=== PATIENT | female | born 2000 | race Caucasian/White ===

== ENCOUNTER 2024-06-04 01:58 | Emergency (ER) | payer MEDICAID, SELFPAY ==
[2024-06-04 01:58] VITALS: BMI 43.7
[2024-06-04 02:22] VITALS: BP 143/88; PULSE 90; RESP 17; TEMP 36.4; O2SAT 100
--- NOTE | 2024-06-04 02:33 | PD.EDURI ---
Upper Respiratory Inf. RME/HPI General Chief Complaint: Flu Like Symptoms Stated Complaint: COUGH, RUNNY NOSE Time Seen by Provider: 06/04/24 02:01 Source: patient Arrival date/time: 06/04/24 01:58 23-year-old female presents emergency department complaining of cough and runny nose that started yesterday. Patient denies any other associated symptoms. Mode of arrival: ambulatory Limitations: no limitations Related Data Home Medications ?Medication ?Instructions ?Recorded ?Confirmed albuterol sulfate 90 mcg/actuation 2 puff inhalation Q6H PRN 08/20/19 aerosol inhaler prazosin 1 mg capsule 1 mg PO QHS 08/20/19 sertraline PO 08/20/19 topiramate 100 mg tablet (Topamax) 100 mg PO BID 08/20/19 Previous Rx's ?Medication ?Instructions ?Recorded acetaminophen 650 mg 650 mg PO Q8H PRN fever or pain 08/20/19 tablet,extended release #30 tabs benzonatate 100 mg capsule See Rx Instructions .Route 08/20/19 (Makenzie Calvin) .COMPLEX cough #30 caps cetirizine 5 mg-pseudoephedrine ER 1 tab PO Q12H #20 tabs 08/20/19 120 mg tablet,extended release,12hr (Zyrtec-D) ibuprofen 600 mg tablet 600 mg PO Q8H PRN fever or pain 08/20/19 #30 tabs ipratropium bromide 21 mcg (0.03 See Rx Instructions .Route 08/20/19 %) nasal spray .COMPLEX #30 mL prochlorperazine 25 mg rectal 25 mg [place] BID PRN nausea and 12/06/21 suppository (Compro) vomiting #12 ea azithromycin 500 mg tablet See Rx Instructions PO .COMPLEX #6 08/13/23 tabs ondansetron 4 mg disintegrating 4 mg PO Q8H PRN nausea and 12/06/23 tablet vomiting #14 tabs prednisone 50 mg tablet 50 mg PO QDAY #7 tabs 04/18/24 acetaminophen 500 mg capsule 500 mg PO Q6H PRN pain #30 caps 06/04/24 benzonatate 100 mg capsule 100 mg PO BID #20 caps 06/04/24 Allergies Allergy/AdvReac Type Severity Reaction Status Date / Time No Known Allergies Allergy Verified 04/18/24 16:34 Review of Systems Review of Systems Systems Reviewed: All systems reviewed, normal except as documented Constitutional Constitutional: Reports system reviewed and no additional complaints, except as documented, Denies body ache(s), Denies chills and Denies fever(s) Eyes Eyes: Reports system reviewed and no additional complaints, except as documented and Denies change in vision ENT Ears, Nose, Mouth, and Throat: Reports system reviewed and no additional complaints, except as documented, Denies disequilibrium, Denies dizziness, Reports nasal congestion, Denies sore throat and Denies vertigo Cardiovascular Cardiovascular: Reports system reviewed and no additional complaints, except as documented, Denies chest pain and Denies dyspnea Respiratory Respiratory: Reports system reviewed and no additional complaints, except as documented, Denies chest congestion, Reports cough and Denies dyspnea Gastrointestinal Gastrointestinal: Reports system reviewed and no additional complaints, except as documented, Denies abdominal pain, Denies nausea and Denies vomiting Musculoskeletal Musculoskeletal: Reports system reviewed and no additional complaints, except as documented, Denies abnormal gait and Denies arthralgias Integumentary/Breasts Skin/Breast: Reports system reviewed and no additional complaints, except as documented, Denies erythema, Denies rash and Denies wounds Neurologic Neurologic: Reports system reviewed and no additional complaints, except as documented, Denies abnormal gait, Denies disequilibrium, Denies dizziness and Denies vertigo Past Medical History Past Medical History NEUROLOGIC: Negative Neurological Disorders CARDIAC: Negative Cardiac Disorders or Congestive Heart Failure RESPIRATORY: Positive Asthma; Negative Chronic Obstructive Pulmonary Disease (COPD) GENITOURINARY: Positive Genitourinary Disorders and Kidney Stones; Negative Renal Disease ENDOCRINE: Negative Diabetes Mellitus Type 1 or Diabetes Mellitus Type 2 Social History SMOKING STATUS: Never smoker SUBSTANCE USE: does not use ED Exam General Limitations: Present no limitations General appearance: Present alert and in no apparent distress Head Head exam: Present atraumatic Eye Eye exam: Present normal appearance, PERRL and EOMI ENT ENT exam: Present normal exam, normal oropharynx and mucous membranes moist Neck Neck exam: Present normal inspection, full ROM and trachea midline Chest Chest inspection: Present normal inspection and symmetric chest wall rise Respiratory Respiratory exam: Present normal lung sounds bilaterally Cardiovascular Cardiovascular exam: Present regular rate, normal rhythm and normal heart sounds Abdominal Exam Abdominal exam: Present soft and normal bowel sounds Extremities Exam Extremities exam: Present normal inspection and full ROM Back Exam Back exam: Present normal inspection and full ROM Neurological Exam Neurological exam: Present alert, oriented X3 and CN II-XII intact Psychiatric Psychiatric exam: Present normal affect and normal mood Skin Skin exam: Present warm, dry, intact and normal color Course Quality Measures none Orders Category Date Time Status Bedside Influenza A&B Antigen Test NOW Care 06/04/24 02:33 Completed Vital Signs Vital signs: Vital Signs Temperature 97.5 F 06/04/24 02:22 Pulse Rate 90 06/04/24 02:22 Respiratory Rate 17 06/04/24 02:22 Blood Pressure 143/88 H 06/04/24 02:22 Pulse Oximetry (%) 100 06/04/24 02:22 Oxygen Delivery Method Room Air 06/04/24 02:22 100% room air within normal limits Upper Respiratory Infection MDM Narrative MDM Narrative:: 23-year-old female presents emergency department complaining of cough and runny nose that started yesterday. Patient denies any other associated symptoms. Patient reports sick contact with 2 of her children having similar symptoms and one of them testing positive for influenza. No adventitious lung sounds on auscultation. Patient not appear to be in any respiratory distress. Patient speaking in full sentences. Patient likely has viral infection. Patient eloped before discharge instructions were given. Patient data External records reviewed:: [facility] previous records Clinical information provided by:: patient Social determinants that could affect healthcare access:: none Patient has the following chronic illnesses:: See chart How is presenting disease/condition affected by chronic disease/condition?: uneffected by Evaluation data The following diagnostics were reviewed and interpreted by me:: lab results Lab and/or radiology exams considered but not ordered:: Ordered Interpretation Summary: Interpreted by me Medications / Prescriptions Medications or Prescriptions considered but not ordered:: N/A Medication administrations:: N/A Consultations Consultation(s) initiated? (list below): No Diagnosis Upper Respiratory Differential Diagnosis: upper respiratory infection, otitis media, sinusitis, viral infection, bronchitis, influenza and pharyngitis Most likely diagnosis given after review of the tests above:: Viral infection Admission Indicated Admission indicated?: not indicated Admission Request Was there a request for admission?: No Disposition Plan Disposition Plan: other (specify) (Eloped) Discharge Plan Plan Patient Disposition: HOME (Self Care) Disposition Comment: Stable Prescriptions/Referrals Prescriptions/Med Rec: New benzonatate 100 mg capsule 100 mg PO BID Qty: 20 0RF acetaminophen 500 mg capsule 500 mg PO Q6H PRN (Reason: pain) Qty: 30 0RF No Action sertraline PO albuterol sulfate 90 mcg/actuation HFA aerosol inhaler 2 puff IH Q6H PRN topiramate [Topamax] 100 mg tablet 100 mg PO BID prazosin 1 mg capsule 1 mg PO QHS acetaminophen 650 mg tablet extended release 650 mg PO Q8H PRN (Reason: fever or pain) Qty: 30 0RF Rx Instructions: swallow whole; do not crush, chew, break, dissolve, cut, or open ibuprofen 600 mg tablet 600 mg PO Q8H PRN (Reason: fever or pain) Qty: 30 0RF Rx Instructions: prn pain / fever ipratropium bromide 0.03 % spray,non-aerosol See Rx Instructions .Route .COMPLEX Qty: 30 0RF Rx Instructions: 2 sprays to each nostril q6-8 hours prn congestion; wait 30 seconds between sprays benzonatate [Tessalon Perles] 100 mg capsule See Rx Instructions .Route .COMPLEX Qty: 30 0RF Rx Instructions: 1-2 cap(s) PO Q8 hours prn cough cetirizine-pseudoephedrine [Zyrtec-D] 5-120 mg tablet extended release 12 hr 1 tab PO Q12H Qty: 20 0RF prochlorperazine [Compro] 25 mg suppository 25 mg PA BID PRN (Reason: nausea and vomiting) Qty: 12 0RF ondansetron 4 mg tablet,disintegrating 4 mg PO Q8H PRN (Reason: nausea and vomiting) Qty: 14 0RF azithromycin 500 mg tablet See Rx Instructions .ROUTE .COMPLEX Qty: 6 0RF Rx Instructions: take 500 mg today (day 1), then 250 mg for 4 days (days 2-5) prednisone 50 mg tablet 50 mg PO QDAY Qty: 7 0RF Problem List Clinical Impression: Viral infection Patient/Caregiver Discharge Instructions Education Materials: ED Viral Syndrome (Adult) Additional Instructions: Drink plenty of water and stay hydrated. Get plenty of rest. Take Tylenol or ibuprofen as needed for fever or pain. Follow-up with primary care provider in 2 to 3 days. Return to emergency department for any worsening symptoms or as needed. Print Language: Cymraes Stand Alone Forms: [employer] Info., Patient Portal Info Letter PA/BIOSOLIDS MANAGEMENT TECHNICIAN Supervising Physician PA/BIOSOLIDS MANAGEMENT TECHNICIAN Supervising Physician: Dr. Hackett
== END 2024-06-04 03:09 | disposition home or self-care (01) ==
LOC: SERX 04:17
PROVIDERS: Emergency Provider Emergency Medicine
DX: B34.9 Viral infection, unspecified (principal)
CPT/HCPCS: 87400; 99283

== ENCOUNTER 2024-08-13 11:15 | Emergency (ER) | payer BC, SELFPAY ==
[2024-08-13 11:27] VITALS: BP 124/79; PULSE 93; RESP 20; TEMP 36.8; O2SAT 97; BMI 41.4
--- NOTE | 2024-08-13 11:48 | PD.EDVAGBL ---
ED OB Contraction Preg RMI/HPI General Chief complaint: Vaginal Bleeding Stated complaint: PROLONGED VAGINAL BLEEDING; PT HAS PCOS Time Seen by Provider: 08/13/24 11:21 Source: patient Arrival date/time: 08/13/24 11:15 23-year-old female with a history of PCOS presents to the emergency room with a chief complaint of vaginal bleeding and pelvic cramping x 2 days Mode of arrival: ambulatory Limitations: no limitations Related Data Home Medications ?Medication ?Instructions ?Recorded ?Confirmed albuterol sulfate 90 mcg/actuation 2 puff inhalation Q6H PRN 08/20/19 aerosol inhaler prazosin 1 mg capsule 1 mg PO QHS 08/20/19 sertraline PO 08/20/19 topiramate 100 mg tablet (Topamax) 100 mg PO BID 08/20/19 Previous Rx's ?Medication ?Instructions ?Recorded acetaminophen 650 mg 650 mg PO Q8H PRN fever or pain 08/20/19 tablet,extended release #30 tabs benzonatate 100 mg capsule See Rx Instructions .Route 08/20/19 (Makenzie Calvin) .COMPLEX cough #30 caps cetirizine 5 mg-pseudoephedrine ER 1 tab PO Q12H #20 tabs 08/20/19 120 mg tablet,extended release,12hr (Zyrtec-D) ibuprofen 600 mg tablet 600 mg PO Q8H PRN fever or pain 08/20/19 #30 tabs ipratropium bromide 21 mcg (0.03 See Rx Instructions .Route 08/20/19 %) nasal spray .COMPLEX #30 mL prochlorperazine 25 mg rectal 25 mg [place] BID PRN nausea and 12/06/21 suppository (Compro) vomiting #12 ea azithromycin 500 mg tablet See Rx Instructions PO .COMPLEX #6 08/13/23 tabs ondansetron 4 mg disintegrating 4 mg PO Q8H PRN nausea and 12/06/23 tablet vomiting #14 tabs prednisone 50 mg tablet 50 mg PO QDAY #7 tabs 04/18/24 acetaminophen 500 mg capsule 500 mg PO Q6H PRN pain #30 caps 06/04/24 benzonatate 100 mg capsule 100 mg PO BID #20 caps 06/04/24 Allergies Allergy/AdvReac Type Severity Reaction Status Date / Time tramadol Allergy Verified 08/13/24 11:20 Review of Systems Review of Systems Systems Reviewed: All systems reviewed, normal except as documented Constitutional Constitutional: Reports system reviewed and no additional complaints, except as documented, Denies fatigue, Denies fever(s), Denies headache(s) and Denies weakness Eyes Eyes: Reports system reviewed and no additional complaints, except as documented, Denies blurry vision and Denies change in vision ENT Ears, Nose, Mouth, and Throat: Reports system reviewed and no additional complaints, except as documented, Denies otalgia, Denies headache(s), Denies nasal congestion, Denies throat swelling and Denies vertigo Cardiovascular Cardiovascular: Reports system reviewed and no additional complaints, except as documented, Denies chest pain, Denies dyspnea and Denies dyspnea on exertion Respiratory Respiratory: Reports system reviewed and no additional complaints, except as documented, Denies chest congestion, Denies cough, Denies dyspnea, Denies dyspnea on exertion and Denies wheezing Gastrointestinal Gastrointestinal: Reports system reviewed and no additional complaints, except as documented, Denies abdominal pain, Reports cramping, Reports nausea and Denies vomiting Genitourinary Genitourinary: Reports system reviewed and no additional complaints, except as documented, Reports abnormal vaginal bleeding and Reports pelvic pain Musculoskeletal Musculoskeletal: Reports system reviewed and no additional complaints, except as documented and Denies back pain Integumentary/Breasts Skin/Breast: Reports system reviewed and no additional complaints, except as documented and Denies wounds Neurologic Neurologic: Reports system reviewed and no additional complaints, except as documented, Denies confusion, Denies headache(s), Denies lack of coordination, Denies vertigo and Denies weakness Psychiatric Psychiatric: Reports system reviewed and no additional complaints, except as documented, Denies anxiety, Denies confusion, Denies depression, Denies paranoia, Denies suicidal ideation and Denies tactile hallucinations Endocrine Endocrine: Reports system reviewed and no additional complaints, except as documented and Denies fatigue Hematologic/Lymphatic Hematologic/Lymphatic: Reports system reviewed and no additional complaints, except as documented and Denies lymphadenopathy Allergic/Immunologic Allergic/Immunologic: Reports system reviewed and no additional complaints, except as documented, Denies throat swelling, Denies urticaria and Denies wheezing ED Exam General Limitations: Present no limitations General appearance: Present alert and in no apparent distress Head Head exam: Present atraumatic Eye Eye exam: Present normal appearance, PERRL and EOMI ENT ENT exam: Present normal exam, normal oropharynx and mucous membranes moist Neck Neck exam: Present normal inspection, full ROM and trachea midline Chest Chest inspection: Present normal inspection and symmetric chest wall rise Respiratory Respiratory exam: Present normal lung sounds bilaterally Cardiovascular Cardiovascular exam: Present regular rate, normal rhythm and normal heart sounds Abdominal Exam Abdominal exam: Present soft and normal bowel sounds Extremities Exam Extremities exam: Present normal inspection and full ROM Back Exam Back exam: Present normal inspection and full ROM Neurological Exam Neurological exam: Present alert, oriented X3 and CN II-XII intact Psychiatric Psychiatric exam: Present normal affect and normal mood Skin Skin exam: Present warm, dry, intact and normal color Course Quality Measures none Orders Category Date Time Status Bedside COVID-19 Antigen Test NOW Care 08/13/24 11:45 Active Bedside Influenza A&B Antigen Test NOW Care 08/13/24 11:45 Completed US transvaginal Stat Exams 08/13/24 12:52 Completed CBC Stat Lab 08/13/24 12:05 Completed CMP [Comprehensive Metabolic Panel] Stat Lab 08/13/24 12:05 Completed Strep A Rapid Stat Lab 08/13/24 11:51 Completed UA, C/S IF [Urinalysis, C/S if Indicated] Stat Lab 08/13/24 12:15 Completed Vital Signs Vital signs: Vital Signs Temperature 98.3 F 08/13/24 11:27 Pulse Rate 93 08/13/24 11:27 Respiratory Rate 20 08/13/24 11:27 Blood Pressure 124/79 08/13/24 11:27 Pulse Oximetry (%) 97 08/13/24 11:27 Oxygen Delivery Method Room Air 08/13/24 11:27 O2 saturation 97% within normal limits Vaginal Bleeding MDM Narrative MDM Narrative: 23-year-old female with a history of PCOS presents to the emergency room with a chief complaint of vaginal bleeding and pelvic cramping x 2 days Patient is hemodynamically stable and in no apparent distress Physical examination shows pelvic cramping. Patient states her vaginal bleeding is less than a period but has been constantly going on. Patient states she saw her primary care provider which put her on metformin but has not helped her symptoms. Pelvic ultrasound was completed and was negative for any acute findings. Hemoglobin and hematocrit are within normal limits. Urinalysis is within normal limits. Patient also tested positive for influenza B. Patient was educated to follow-up with primary care provider as well as her SOFTWARE RELIABILITY ENGINEER for further management of her PCOS. Patient was discharged and educated to return to the emergency room for any evidence of worsening signs or symptoms Patient data External records reviewed:: [facility] previous records Clinical information provided by:: patient Social determinants that could affect healthcare access:: none Patient has the following chronic illnesses:: PCOS How is presenting disease/condition affected by chronic disease/condition?: caused by Evaluation data The following diagnostics were reviewed and interpreted by me:: lab results and radiology exam(s) Lab and/or radiology exams considered but not ordered:: Labs and radiology exams considered and ordered Interpretation Summary: Pelvic ultrasound-FINDINGS: Uterus 6.7 cm endometrial stripe 0.7 cm No uterine mass or intrauterine gestation Right ovary 3.6 cm arterial flow Left ovary 3.3 cm arterial flow IMPRESSION: Negative examination. Medications / Prescriptions Medications or Prescriptions considered but not ordered:: Medication given Medication administrations:: Medication not given Consultations Consultation(s) initiated? (list below): No Diagnosis Vaginal Bleeding Differential Diagnosis: dysfunctional uterine bleeding, vaginal bleeding and other (Influenza B) Most likely diagnosis given after review of the tests above:: Dysfunctional uterine bleeding Admission Indicated Admission indicated?: not indicated Admission Request Was there a request for admission?: No Disposition Plan Disposition Plan: Discharge Discharge Attestation Discharge Attestation: The patient and all family members were given an opportunity to ask questions and understood the discharge instructions. Discharge instructions specifically effects, indications for sooner follow up or return to the emergency department, and the expected course of current diagnosis. Patient condition: Stable Discharge Plan Plan Patient Disposition: HOME (Self Care) Disposition Comment: Stable Prescriptions/Referrals Prescriptions/Med Rec: No Action sertraline PO albuterol sulfate 90 mcg/actuation HFA aerosol inhaler 2 puff IH Q6H PRN topiramate [Topamax] 100 mg tablet 100 mg PO BID prazosin 1 mg capsule 1 mg PO QHS acetaminophen 650 mg tablet extended release 650 mg PO Q8H PRN (Reason: fever or pain) Qty: 30 0RF Rx Instructions: swallow whole; do not crush, chew, break, dissolve, cut, or open ibuprofen 600 mg tablet 600 mg PO Q8H PRN (Reason: fever or pain) Qty: 30 0RF Rx Instructions: prn pain / fever ipratropium bromide 0.03 % spray,non-aerosol See Rx Instructions .Route .COMPLEX Qty: 30 0RF Rx Instructions: 2 sprays to each nostril q6-8 hours prn congestion; wait 30 seconds between sprays benzonatate [Tessalon Perles] 100 mg capsule See Rx Instructions .Route .COMPLEX Qty: 30 0RF Rx Instructions: 1-2 cap(s) PO Q8 hours prn cough cetirizine-pseudoephedrine [Zyrtec-D] 5-120 mg tablet extended release 12 hr 1 tab PO Q12H Qty: 20 0RF prochlorperazine [Compro] 25 mg suppository 25 mg [place] BID PRN (Reason: nausea and vomiting) Qty: 12 0RF ondansetron 4 mg tablet,disintegrating 4 mg PO Q8H PRN (Reason: nausea and vomiting) Qty: 14 0RF benzonatate 100 mg capsule 100 mg PO BID Qty: 20 0RF acetaminophen 500 mg capsule 500 mg PO Q6H PRN (Reason: pain) Qty: 30 0RF azithromycin 500 mg tablet See Rx Instructions .ROUTE .COMPLEX Qty: 6 0RF Rx Instructions: take 500 mg today (day 1), then 250 mg for 4 days (days 2-5) prednisone 50 mg tablet 50 mg PO QDAY Qty: 7 0RF Referrals: Berenice Giang PA-C [Primary Care Provider] - In 1 week Problem List Clinical Impression: Influenza B, Abnormal vaginal bleeding Patient/Caregiver Discharge Instructions Education Materials: ED Dysfunctional Uterine Bleeding, ED Influenza (Adult) Additional Instructions: Please follow-up with your SOFTWARE RELIABILITY ENGINEER in the next 24 to 48 hours. At this time your pelvic ultrasound was negative for any acute findings. Your blood levels are within normal limits. Please see an SOFTWARE RELIABILITY ENGINEER to help manage her symptoms of your PCOS. You also tested positive for influenza B this can be contributing to your nasal congestion sore throat and bodyaches. The treatment for this is symptom management. Please continue to take Tylenol and ibuprofen for fever management. Please increase your oral fluid intake. For any evidence of worsening signs or symptoms please return to the emergency room immediately Print Language: Estonian Stand Alone Forms: [employer] Award Info., Patient Portal Info Letter BEN/IVORY Supervising Physician BEN/IVORY Supervising Physician: Dr. Hackett
[2024-08-13 12:22] LABS: Collection Type, Urine Clean Catch
[2024-08-13 12:24] LABS: Strep A Rapid Negative (Negative)
[2024-08-13 12:30] LABS: Basophils % (Auto) 0 % (0-2.5); Eosinophils # (Auto) 0.1 Thou/mm3 (0.0-0.5); Eosinophils % (Auto) 1 % (0-10); Hematocrit 37.2 % (36.0-46.0); Hemoglobin 12.2 g/dL (12.0-16.0); Immature Granulocytes % (Auto) 0 % (0-0); Immature Granulocytes Auto 0.03 Thou/mm3 (0.00-0.00); Lymphocytes # (Auto) 2.5 Thou/mm3 (1.0-4.8); Lymphocytes % (Auto) 22 % (10-50); Mean Corpuscular HGB Conc 32.8 g/dl (31.0-37.0); Mean Corpuscular Hemoglobin 27.7 pg (25.0-35.0); Mean Corpuscular Volume 85 fL (80-100); Monocytes % (Auto) 8 % (0-12); Neutrophils # (Auto) 7.7 Thou/mm3 (1.8-7.7); Neutrophils % (Auto) 68 % (37-80); Nucleated Red Blood Cell % 0 /100 WBC (0); Platelet Count 345 Thou/mm3 (140-440); RDW Standard Deviation 38.9 fL (36.4-46.3); White Blood Count 11.3 Thou/mm3 (3.6-11.0)
[2024-08-13 12:50] LABS: Alanine Aminotransferase 37 U/L (10-49); Albumin, Serum 4.6 gm/dL (3.5-5.0); Anion Gap 8 (7-16); Aspartate Amino Transferase 17 U/L (0-34); BUN/Creatinine Ratio 17 Ratio (12-20); Bilirubin,Total 0.5 mg/dL (0.3-1.2); Blood Urea Nitrogen 10 mg/dL (9-23); Calcium 9.9 mg/dL (8.3-10.6); Calcium (Corrected) 9.9 mg/dL (8.5-10.1); Carbon Dioxide 27.3 mMol/L (20.0-31.0); Chloride 106 mMol/L (98-107); Creatinine (Component) 0.6 mg/dL (0.6-1.3); Estimated Creatinine Clearance 179.6 mL/min (>60); Glucose 69 mg/dL (74-106); Osmolality,Calculated 278 (275-295); Potassium 3.6 mMol/L (3.4-5.1); Sodium 141 mMol/L (136-145); Total Protein 7.4 gm/dL (5.7-8.2); eGFR > 60 See Note
[2024-08-13 12:51] LABS: Albumin/Globulin Ratio 1.6 (1.2-2.2); Alkaline Phosphatase 64 U/L (46-116); Globulin 2.8 gm/dL (2.3-3.5)
--- NOTE | 2024-08-13 12:52 | XR_ITS ---
Examination: Transvaginal ultrasound of the pelvis, complete Technique: Transvaginal sonographic images pelvis performed using kerr scale imaging Exam date and time: August 13, 2024 1256 hours INDICATIONS: Irregular heavy vaginal bleeding beginning 4 months ago FINDINGS: Uterus 6.7 cm endometrial stripe 0.7 cm No uterine mass or intrauterine gestation Right ovary 3.6 cm arterial flow Left ovary 3.3 cm arterial flow IMPRESSION: Negative examination.
[2024-08-13 12:57] LABS: Amorphous Crystals,Urine Present (Absent); Bilirubin,Urine Negative (Negative); Blood,Urine 1+ (Negative); Clarity,Urine Turbid (Clear/Hazy); Color,Urine Lt-Yellow (Lt Yel-Yel); Culture Indicated,Urine Not Indicated; Glucose, Urine Negative (Negative); Ketones,Urine Negative (Negative); Leukocyte Esterase,Urine Negative (Negative); Nitrite,Urine Negative (Negative); PH,Urine 7.5 (5.0-7.0); Protein,Urine Negative (Neg - Trace); RBC,Urine 5 /hpf (0-3); Squamous Epithelial Cell,Urine < 1 /hpf (0-5); Urobilinogen,Urine Negative mg/dL (0.0-1.0); WBC,Urine 1 /hpf (0-5)
== END 2024-08-13 13:59 | disposition home or self-care (01) ==
PROVIDERS: Nurse Practitioner Family; Emergency Provider Emergency Medicine; PCP Physician Assistant Medical
DX: N93.9 Abnormal uterine and vaginal bleeding, unspecified (principal); J10.1 Influenza due to other identified influenza virus with other respiratory manifestations
CPT/HCPCS: 36415; 76830; 80053; 81001; 85025; 87400; 87651; 87811; 99284

== ENCOUNTER 2024-09-18 06:07 | Emergency (ER) | payer BC, SELFPAY ==
[2024-09-18 06:07] VITALS: BMI 39.9
[2024-09-18 06:23] VITALS: BP 129/57; PULSE 100; RESP 19; TEMP 36.9; O2SAT 100
--- NOTE | 2024-09-18 06:23 | XR_ITS ---
Examination: PA lateral chest 2 views Technique: Upright PA and lateral chest 2 views Exam date and time: 2024 0707 hrs. Comparison April 18, 2024 Indications: Coughing shortness of breath today Findings: Normal heart size No lobar pneumonia or pulmonary edema The osseous structures are intact Impression: No active disease
[2024-09-18] MEDS: ALBUTEROL/IPRATROPIUM (Duoneb) RT SOL 3 ML NEBU INH (06:32)
[2024-09-18 06:36] VITALS: PULSE 91; RESP 20; O2SAT 99
[2024-09-18] MEDS: dexAMETHasone 4 MG TABLET 10 MG PO (06:36)
--- NOTE | 2024-09-18 06:55 | EDNOTE_ITS ---
<Statement entered by Kathy Centeno MD - 09/18/24 17:07> As co-signing physician, I was present and available for consult prn. I concur with the plan and care as documented by the midlevel provider. ED Asthma RME/HPI General Chief Complaint: Asthma Stated Complaint: ASTHMA ATTACK Time Seen by Provider: 09/18/24 06:12 Arrival date/time: 09/18/24 06:07 23-year-old female with history of asthma presents the emergency room today for complaint of dry cough and wheezing patient reports that she been using a breathing treatment but still has wheezing and still has cough Limitations: no limitations Related Data Home Medications ?Medication ?Instructions ?Recorded ?Confirmed albuterol sulfate 90 mcg/actuation 2 puff inhalation Q 6H PRN 08/20/19 aerosol inhaler prazosin 1 mg capsule 1 mg PO QHS 08/20/19 sertraline PO 08/20/19 topiramate 100 mg tablet (Topamax) 100 mg PO BID 08/19 Previous Rx's ?Medication ?Instructions ?Recorded acetaminophen 650 mg 650 mg PO Q8H PRN fever or p ain 08/20/19 tablet,extended release #30 tabs benzonatate 100 mg capsule See Rx Instructions .Route 08/20/19 (Makenzie Calvin) .COMPLEX cough #30 caps cetirizine 5 mg-pseudoephedrine ER 1 tab PO Q12H #20 t abs 08/20/19 120 mg tablet,extended release,12hr (Zyrtec-D) ibuprofen 600 mg tablet 600 mg PO Q8H PRN fever or p ain 08/20/19 #30 tabs ipratropium bromide 21 mcg (0.03 See Rx Instructions . Route 08/20/19 %) nasal spray .COMPLEX #30 mL prochlorperazine 25 mg rectal 25 mg AR BID PRN nausea and 12/06/21 suppository (Compro) vomiting #12 ea azithromycin 500 mg tablet See Rx Instructions PO .COM PLEX #6 08/13/23 tabs ondansetron 4 mg disintegrating 4 mg PO Q8H PRN nausea and 12/06/23 tablet vomiting #14 tabs prednisone 50 mg tablet 50 mg PO QDAY #7 tabs acetaminophen 500 mg capsule 500 mg PO Q6H PRN pain #3 0 caps 06/04/24 benzonatate 100 mg capsule 100 mg PO BID #20 caps 05/13 10/03 albuterol sulfate 90 mcg/actuation 2 puff inhalation Q 6H PRN 09/18/24 aerosol inhaler (Ventolin HFA) shortness of breath or wheezing #8.5 grams benzonatate 100 mg capsule 100 mg PO TID #14 caps 03/06 prednisone 10 mg tablet 30 mg (3 x 10 mg) PO BID 3 d ays 09/18/24 #18 tabs Allergies Allergy/AdvReac Type Severity Reaction Status Date / Time tramadol Allergy Verified 08/13/24 11:20 Review of Systems Review of Systems Systems Reviewed: All systems reviewed, normal except as documented Constitutional Constitutional: Reports system reviewed and no additional complaints, except as documented, Denies fever(s) and Denies headache(s) Eyes Eyes: Reports system reviewed and no additional complaints, except as documented and Denies blurry vision ENT Ears, Nose, Mouth, and Throat: Reports system reviewed and no additional complaints, except as documented, Denies headache(s), Denies nasal congestion and Denies nasal discharge Cardiovascular Cardiovascular: Reports system reviewed and no additional complaints, except as documented, Denies chest pain and Denies dyspnea Respiratory Respiratory: Reports system reviewed and no additional complaints, except as documented, Reports chest congestion, Reports cough, Denies dyspnea and Reports wheezing Gastrointestinal Gastrointestinal: Reports system reviewed and no additional complaints, except as documented and Denies abdominal pain Integumentary/Breasts Skin/Breast: Reports system reviewed and no additional complaints, except as documented and Denies rash Neurologic Neurologic: Reports system reviewed and no additional complaints, except as documented, Reports as per HPI and Denies headache(s) Allergic/Immunologic Allergic/Immunologic: Reports wheezing Past Medical History Past Medical History NEUROLOGIC: Negative Neurological Disorders CARDIAC: Negative Cardiac Disorders or Congestive Heart Failure RESPIRATORY: Positive Asthma; Negative Chronic Obstructive Pulmonary Disease (COPD) GENITOURINARY: Positive Genitourinary Disorders and Kidney Stones; Negative Renal Disease ENDOCRINE: Negative Diabetes Mellitus Type 1 or Diabetes Mellitus Type 2 Social History SMOKING STATUS: Never smoker SUBSTANCE USE: does not use ED Exam General Limitations: Present no limitations General appearance: Present alert and in no apparent distress Head Head exam: Present atraumatic Eye Eye exam: Present normal appearance, PERRL and EOMI; Absent conjunctival injection ENT ENT exam: Present normal exam, normal oropharynx and mucous membranes moist Neck Neck exam: Present normal inspection, full ROM and trachea midline Chest Chest inspection: Present normal inspection and symmetric chest wall rise Respiratory Respiratory exam: Present wheezes (Mild wheezing); Absent respiratory distress, stridor, accessory muscle use or prolonged expiratory phase Cardiovascular Cardiovascular exam: Present regular rate, normal rhythm and normal heart sounds Abdominal Exam Abdominal exam: Present soft and normal bowel sounds Extremities Exam Extremities exam: Present normal inspection and full ROM Back Exam Back exam: Present normal inspection and full ROM Neurological Exam Neurological exam: Present alert, oriented X3 and CN II-XII intact Psychiatric Psychiatric exam: Present normal affect and normal mood Skin Skin exam: Present warm, dry, intact and normal color Course Quality Measures none Orders Category Date Time Status Bedside Influenza A&B Antigen Test NOW Care 09/18/24 06:23 Completed XR chest 2V Stat Exams 09/18/24 06:23 Ordered Albuterol/Ipratr Rt Lina [Duoneb Rt Lina] Med 09/18/24 06:23 Discontinued 3 ml INH X1 ONE dexAMETHasone TAB [Decadron Tab] Med 09/18/24 06:23 Discontinued 10 mg PO X1 ONE Vital Signs Vital signs: Vital Signs Temperature 98.5 F 09/18/24 06:23 Pulse Rate 100 09/18/24 06:23 Respiratory Rate 19 09/18/24 06:23 Blood Pressure 129/57 L 09/18/24 06:23 Pulse Oximetry (%) 100 09/18/24 06:23 Oxygen Delivery Method Room Air 09/18/24 06:23 O2 saturation 100% room air within normal limits Asthma MDM Narrative MDM Narrative:: 23-year-old female with history of asthma presents the emergency room today for complaint of dry cough and wheezing patient reports that she been using a breathing treatment but still has wheezing and still has cough Lab work and imaging obtained no acute emergent findings noted Patient can breathe treatment as well as steroids Patient discharged home in no distress to follow-up with primary care doctor in the next 24 to 48 hours and for any worsening symptoms to return to the ER immediately Patient data External records reviewed:: [facility] previous records Clinical information provided by:: patient Social determinants that could affect healthcare access:: none Patient has the following chronic illnesses:: Asthma How is presenting disease/condition affected by chronic disease/condition?: caused by Evaluation data The following diagnostics were reviewed and interpreted by me:: lab results and radiology exam(s) Lab and/or radiology exams considered but not ordered:: Labs radiology obtain Interpretation Summary: Reviewed by me Medications / Prescriptions Medications or Prescriptions considered but not ordered:: Given Medication administrations:: Medication Administration History Discontinued Medications Albuterol/Ipratropium (Albuterol/Ipratropium (Duoneb) Rt Lina 3 Ml Nebu) 3 ml INH X1 ONE Stop: 09/18/24 06:24 Last Admin: 09/18/24 06:32 Dose: 3 ml Documented By: [facility] Dexamethasone (Dexamethasone 4 Mg Tablet) 10 mg PO X1 ONE Stop: 09/18/24 06:24 Last Admin: 09/18/24 06:36 Dose: 10 mg Documented By: CB Consultations Consultation(s) initiated? (list below): No Diagnosis Differential diagnosis asthma: Acute exacerbation, Status asthmaticus and Acute asthmatic bronchitis Most likely diagnosis given after review of the tests above:: Asthma Admission Indicated Admission indicated?: not indicated Admission Request Was there a request for admission?: No Disposition Plan Disposition Plan: Discharge Discharge Attestation Discharge Attestation: The patient and all family members were given an opportunity to ask questions and understood the discharge instructions. Discharge instructions specifically effects, indications for sooner follow up or return to the emergency department, and the expected course of current diagnosis. Patient condition: Stable Discharge Plan Plan Patient Disposition: HOME (Self Care) Disposition Comment: Stable Prescriptions/Referrals Prescriptions/Med Rec: New prednisone 10 mg tablet 30 mg PO BID 3 Days Qty: 18 0RF albuterol sulfate [Ventolin HFA] 90 mcg/actuation HFA aerosol inhaler 2 puff inhalation Q6H PRN (Reason: shortness of breath or wheezing) Qty: 8.5 0RF benzonatate 100 mg capsule 100 mg PO TID Qty: 14 0RF No Action sertraline PO albuterol sulfate 90 mcg/actuation HFA aerosol inhaler 2 puff IH Q6H PRN topiramate [Topamax] 100 mg tablet 100 mg PO BID prazosin 1 mg capsule 1 mg PO QHS acetaminophen 650 mg tablet extended release 650 mg PO Q8H PRN (Reason: fever or pain) Qty: 30 0RF Rx Instructions: swallow whole; do not crush, chew, break, dissolve, cut, or open ibuprofen 600 mg tablet 600 mg PO Q8H PRN (Reason: fever or pain) Qty: 30 0RF Rx Instructions: prn pain / fever ipratropium bromide 0.03 % spray,non-aerosol See Rx Instructions .Route .COMPLEX Qty: 30 0RF Rx Instructions: 2 sprays to each nostril q6-8 hours prn congestion; wait 30 seconds between sprays benzonatate [Tessalon Perles] 100 mg capsule See Rx Instructions .Route .COMPLEX Qty: 30 0RF Rx Instructions: 1-2 cap(s) PO Q8 hours prn cough cetirizine-pseudoephedrine [Zyrtec-D] 5-120 mg tablet extended release 12 hr 1 tab PO Q12H Qty: 20 0RF prochlorperazine [Compro] 25 mg suppository 25 mg AR BID PRN (Reason: nausea and vomiting) Qty: 12 0RF ondansetron 4 mg tablet,disintegrating 4 mg PO Q8H PRN (Reason: nausea and vomiting) Qty: 14 0RF benzonatate 100 mg capsule 100 mg PO BID Qty: 20 0RF acetaminophen 500 mg capsule 500 mg PO Q6H PRN (Reason: pain) Qty: 30 0RF azithromycin 500 mg tablet See Rx Instructions .ROUTE .COMPLEX Qty: 6 0RF Rx Instructions: take 500 mg today (day 1), then 250 mg for 4 days (days 2-5) prednisone 50 mg tablet 50 mg PO QDAY Qty: 7 0RF Referrals: Temporary Provider,ED [Physician] - In 1 week Problem List Clinical Impression: Asthma exacerbation Patient/Caregiver Discharge Instructions Education Materials: Asthma Additional Instructions: Please follow up with your primary care doctor in the next 24-48hrs for any worsening symptoms return here immediately Print Language: [place] Stand Alone Forms: [employer] Award Info., Work/School Release, Patient Portal Info Letter PA/ENDLESS [employer]ED [employer]UM S[employer]ER Supervising Physician PA/IVORY Supervising Physician: Dr. Centeno
== END 2024-09-18 08:01 | disposition home or self-care (01) ==
PROVIDERS: Emergency Provider Emergency Medicine; PCP Physician Assistant Medical
DX: J45.901 Unspecified asthma with (acute) exacerbation (principal)
CPT/HCPCS: 71046; 87400; 94640; 99283; A9270; J8540

== ENCOUNTER 2024-11-14 00:35 | Emergency (ER) | payer SELFPAY ==
[2024-11-14 00:37] VITALS: BMI 40.7
[2024-11-14 02:06] VITALS: BP 107/66; PULSE 116; RESP 20; TEMP 37.8; O2SAT 98
[2024-11-14 02:56] LABS: Lactate (Lactic Acid) 1.4 mMol/L (0.4-2.0)
[2024-11-14 02:58] LABS: Basophils % (Auto) 0 % (0-2.5); Eosinophils % (Auto) 0 % (0-10); Hematocrit 40.8 % (36.0-46.0); Hemoglobin 13.5 g/dL (12.0-16.0); Immature Granulocytes % (Auto) 0 % (0-0); Immature Granulocytes Auto 0.04 Thou/mm3 (0.00-0.00); Lymphocytes # (Auto) 0.6 Thou/mm3 (1.0-4.8); Lymphocytes % (Auto) 5 % (10-50); Mean Corpuscular HGB Conc 33.1 g/dl (31.0-37.0); Mean Corpuscular Hemoglobin 27.9 pg (25.0-35.0); Mean Corpuscular Volume 84 fL (80-100); Monocytes # (Auto) 0.4 Thou/mm3 (0.0-0.8); Monocytes % (Auto) 4 % (0-12); Neutrophils % (Auto) 90 % (37-80); Nucleated Red Blood Cell % 0 /100 WBC (0); Platelet Count 287 Thou/mm3 (140-440); RDW Standard Deviation 39.7 fL (36.4-46.3); Red Blood Count 4.84 Miln/mm3 (4.00-5.20)
[2024-11-14] MEDS: ONDANSETRON ODT 4 MG TABRAP PO (03:01)
[2024-11-14] MEDS: ACETAMINOPHEN 500 MG TABLET 1000 MG PO (03:01)
[2024-11-14 03:05] LABS: Collection Type, Urine Clean Catch
[2024-11-14 03:15] LABS: Bilirubin,Urine Negative (Negative); Blood,Urine Negative (Negative); Clarity,Urine Clear (Clear/Hazy); Color,Urine Yellow (Lt Yel-Yel); Culture Indicated,Urine Not Indicated; Glucose, Urine Negative (Negative); Ketones,Urine 1+ (Negative); Leukocyte Esterase,Urine Negative (Negative); Nitrite,Urine Negative (Negative); Protein,Urine 1+ (Neg - Trace); RBC,Urine 3 /hpf (0-3); Squamous Epithelial Cell,Urine 12 /hpf (0-5); WBC,Urine 1 /hpf (0-5)
[2024-11-14 03:34] LABS: Alanine Aminotransferase 29 U/L (10-49); Albumin, Serum 4.5 gm/dL (3.5-5.0); Albumin/Globulin Ratio 1.7 (1.2-2.2); Alkaline Phosphatase 64 U/L (46-116); Anion Gap 12 (7-16); Aspartate Amino Transferase 20 U/L (0-34); BUN/Creatinine Ratio 18 Ratio (12-20); Bilirubin,Total 0.6 mg/dL (0.3-1.2); Blood Urea Nitrogen 14 mg/dL (9-23); Calcium 8.8 mg/dL (8.3-10.6); Calcium (Corrected) 8.8 mg/dL (8.5-10.1); Carbon Dioxide 25.4 mMol/L (20.0-31.0); Chloride 105 mMol/L (98-107); Creatinine (Component) 0.8 mg/dL (0.6-1.3); Estimated Creatinine Clearance 133.5 mL/min (>60); Globulin 2.6 gm/dL (2.3-3.5); Glucose 114 mg/dL (74-106); Lipase 44 U/L (12-53); Osmolality,Calculated 284 (275-295); Potassium 3.9 mMol/L (3.4-5.1); Procalcitonin 0.09 ng/ml (0.0-0.49); Sodium 142 mMol/L (136-145); Total Protein 7.1 gm/dL (5.7-8.2); eGFR > 60 See Note
[2024-11-14 03:48] LABS: HCG Qualitative,Urine Negative
[2024-11-14 03:59] LABS: Amphetamine/Methamp Scrn,U Negative (Negative); Barbiturate Screen,Urine Negative (Negative); Benzodiazepines Screen,Urine Negative (Negative); Benzoylecgonine Screen, Ur Negative (Negative); Fentanyl Screen,Urine Negative (Negative); Opiate Screen,Urine Negative (Negative); THC Screen,Urine Negative (Negative)
--- NOTE | 2024-11-14 05:50 | EDNOTE_ITS ---
Nausea/Vomit./Diarrhea-RME/HPI General Chief complaint: Nausea/Vomiting/Diarrhea Stated complaint: VOMITING, DEHYDRATED Time Seen by Provider: 11/14/24 02:31 Arrival date/time: 11/14/24 00:35 23F with history of asthma presents to ED with 1 day of N/V and ab cramping. Nephew had similar symptoms, but also diarrhea. Limitations: no limitations Related Data Home Medications ?Medication ?Instructions ?Recorded ?Confirmed albuterol sulfate 90 mcg/actuation 2 puff inhalation Q 6H PRN 08/20/19 aerosol inhaler prazosin 1 mg capsule 1 mg PO QHS 08/20/19 sertraline PO 08/20/19 topiramate 100 mg tablet (Topamax) 100 mg PO BID 08/19 Previous Rx's ?Medication ?Instructions ?Recorded acetaminophen 650 mg 650 mg PO Q8H PRN fever or p ain 08/20/19 tablet,extended release #30 tabs benzonatate 100 mg capsule See Rx Instructions .Route 08/20/19 (Makenzie Calvin) .COMPLEX cough #30 caps cetirizine 5 mg-pseudoephedrine ER 1 tab PO Q12H #20 t abs 08/20/19 120 mg tablet,extended release,12hr (Zyrtec-D) ibuprofen 600 mg tablet 600 mg PO Q8H PRN fever or p ain 08/20/19 #30 tabs ipratropium bromide 21 mcg (0.03 See Rx Instructions . Route 08/20/19 %) nasal spray .COMPLEX #30 mL prochlorperazine 25 mg rectal 25 mg SD BID PRN nausea and 12/06/21 suppository (Compro) vomiting #12 ea azithromycin 500 mg tablet See Rx Instructions PO .COM PLEX #6 08/13/23 tabs ondansetron 4 mg disintegrating 4 mg PO Q8H PRN nausea and 12/06/23 tablet vomiting #14 tabs prednisone 50 mg tablet 50 mg PO QDAY #7 tabs acetaminophen 500 mg capsule 500 mg PO Q6H PRN pain #3 0 caps 06/04/24 benzonatate 100 mg capsule 100 mg PO BID #20 caps 05/13 10/03 albuterol sulfate 90 mcg/actuation 2 puff inhalation Q 6H PRN 04/09/25 aerosol inhaler (Ventolin HFA) shortness of breath or wheezing #8.5 grams benzonatate 100 mg capsule 100 mg PO TID #14 caps 03/06 ondansetron 4 mg disintegrating 4 mg PO Q8H PRN nausea and 11/14/24 tablet vomiting #14 tabs Allergies Allergy/AdvReac Type Severity Reaction Status Date / Time tramadol Allergy Verified 08/13/24 11:20 TYLENOL WITH CODIENE Allergy Gastrointestinal Uncoded 11/14/24 00:36 Upset Review of Systems Review of Systems Systems Reviewed: All systems reviewed, normal except as documented Constitutional Constitutional: Reports system reviewed and no additional complaints, except as documented, Denies fever(s) and Denies headache(s) ENT Ears, Nose, Mouth, and Throat: Denies disequilibrium and Denies headache(s) Cardiovascular Cardiovascular: Reports system reviewed and no additional complaints, except as documented, Denies chest pain and Denies dyspnea Respiratory Respiratory: Reports system reviewed and no additional complaints, except as documented, Denies cough and Denies dyspnea Gastrointestinal Gastrointestinal: Reports system reviewed and no additional complaints, except as documented, Reports as per HPI, Reports abdominal pain, Reports nausea and Reports vomiting Neurologic Neurologic: Reports system reviewed and no additional complaints, except as documented, Denies confusion, Denies disequilibrium and Denies headache(s) Psychiatric Psychiatric: Denies confusion Past Medical History Past Medical History NEUROLOGIC: Negative Neurological Disorders CARDIAC: Negative Cardiac Disorders or Congestive Heart Failure RESPIRATORY: Positive Asthma; Negative Chronic Obstructive Pulmonary Disease (COPD) GENITOURINARY: Positive Genitourinary Disorders and Kidney Stones; Negative Renal Disease ENDOCRINE: Negative Diabetes Mellitus Type 1 or Diabetes Mellitus Type 2 Social History SMOKING STATUS: Former smoker SUBSTANCE USE: does not use ED Exam General Limitations: Present no limitations General appearance: Present alert and in no apparent distress Head Head exam: Present atraumatic Eye Eye exam: Present normal appearance, PERRL and EOMI ENT ENT exam: Present normal exam, normal oropharynx and mucous membranes moist Neck Neck exam: Present normal inspection, full ROM and trachea midline Chest Chest inspection: Present normal inspection and symmetric chest wall rise Respiratory Respiratory exam: Present normal lung sounds bilaterally Cardiovascular Cardiovascular exam: Present regular rate, normal rhythm and normal heart sounds Abdominal Exam Abdominal exam: Present soft and normal bowel sounds Extremities Exam Extremities exam: Present normal inspection and full ROM Back Exam Back exam: Present normal inspection and full ROM Neurological Exam Neurological exam: Present alert, oriented X3 and CN II-XII intact Psychiatric Psychiatric exam: Present normal affect and normal mood Skin Skin exam: Present warm, dry, intact and normal color Course Quality Measures none Orders Category Date Time Status CBC Stat Lab 11/14/24 02:43 Completed CMP [Comprehensive Metabolic Panel] Stat Lab 11/14/24 02:43 Completed Drug Screen,Urine Stat Lab 11/14/24 02:50 Completed HCG Qualitative,Urine Stat Lab 11/14/24 02:50 Completed Lactate (Lactic Acid) Stat Lab 11/14/24 02:43 Completed Lipase Stat Lab 11/14/24 02:43 Completed Procalcitonin Stat Lab 11/14/24 02:43 Completed Urinalysis, C/S if Indicated Stat Lab 11/14/24 02:50 Completed Acetaminophen Tab [Tylenol ES Tab] Med 11/14/24 02:32 Discontinued 1,000 mg PO X1 ONE Ondansetron Odt [Zofran Odt] Med 11/14/24 02:32 Discontinued 4 mg PO X1 ONE Vital Signs Vital signs: Vital Signs Temperature 100.0 F 11/14/24 02:06 Pulse Rate 116 H 11/14/24 02:06 Respiratory Rate 20 11/14/24 02:06 Blood Pressure 107/66 11/14/24 02:06 Pulse Oximetry (%) 98 11/14/24 02:06 Oxygen Delivery Method Room Air 11/14/24 02:06 O2 at 98% on RA and WNLs Nausea/Vomiting/Diarrhea MDM Narrative MDM Narrative:: 23F with history of asthma presents to ED with 1 day of N/V and ab cramping. Nephew had similar symptoms, but also diarrhea. Physical exam reveals normal WOB. No ab tenderness. Patient is mildly febrile, but does not appear toxic. No leukocytosis. CMP unremarkable. Procal/lactate normal. Lipase normal. UA clean and no dehydration. Tox/alcohol/HCG screen neg. Likely viral gastroenteritis. PO challenge passed. Patient data External records reviewed:: [facility] previous records Clinical information provided by:: patient Social determinants that could affect healthcare access:: none Patient has the following chronic illnesses:: asthma How is presenting disease/condition affected by chronic disease/condition?: uneffected by Evaluation data The following diagnostics were reviewed and interpreted by me:: lab results Lab and/or radiology exams considered but not ordered:: ordered Interpretation Summary: above Medications / Prescriptions Medications / Prescriptions considered but not ordered:: ordered Medication administrations:: Medication Administration History Discontinued Medications Acetaminophen (Acetaminophen 500 Mg Tablet) 1,000 mg PO X1 ONE Stop: 11/14/24 02:33 Last Admin: 11/14/24 03:01 Dose: 1,000 mg Documented By: HOMER Ondansetron HCl (Ondansetron Odt 4 Mg Tabrap) 4 mg PO X1 ONE; Protocol Stop: 11/14/24 02:33 Last Admin: 11/14/24 03:01 Dose: 4 mg Documented By: HOMER above Consultations Consultation(s) initiated? (list below): No Diagnosis Nausea Differential Diagnosis: traveler's diarrhea, food poisoning, gastroenteritis, clostridium difficile infection, drug-induced nausea and vomiting and dehydration Most likely diagnosis given after review of the tests above:: gastroenteritis Admission Indicated Admission indicated?: not indicated Admission Request Was there a request for admission?: No Disposition Plan Disposition Plan: Discharge Discharge Attestation Discharge Attestation: The patient and all family members were given an opportunity to ask questions and understood the discharge instructions. Discharge instructions specifically effects, indications for sooner follow up or return to the emergency department, and the expected course of current diagnosis. Patient condition: Stable Discharge Plan Plan Patient Disposition: HOME (Self Care) Discharge Disposition comment: Stable Prescriptions/Referrals Prescriptions/Med Rec: New ondansetron 4 mg tablet,disintegrating 4 mg PO Q8H PRN (Reason: nausea and vomiting) Qty: 14 0RF No Action sertraline PO albuterol sulfate 90 mcg/actuation HFA aerosol inhaler 2 puff IH Q6H PRN topiramate [Topamax] 100 mg tablet 100 mg PO BID prazosin 1 mg capsule 1 mg PO QHS acetaminophen 650 mg tablet extended release 650 mg PO Q8H PRN (Reason: fever or pain) Qty: 30 0RF Rx Instructions: swallow whole; do not crush, chew, break, dissolve, cut, or open ibuprofen 600 mg tablet 600 mg PO Q8H PRN (Reason: fever or pain) Qty: 30 0RF Rx Instructions: prn pain / fever ipratropium bromide 0.03 % spray,non-aerosol See Rx Instructions .Route .COMPLEX Qty: 30 0RF Rx Instructions: 2 sprays to each nostril q6-8 hours prn congestion; wait 30 seconds between sprays benzonatate [Tessalon Perles] 100 mg capsule See Rx Instructions .Route .COMPLEX Qty: 30 0RF Rx Instructions: 1-2 cap(s) PO Q8 hours prn cough cetirizine-pseudoephedrine [Zyrtec-D] 5-120 mg tablet extended release 12 hr 1 tab PO Q12H Qty: 20 0RF prochlorperazine [Compro] 25 mg suppository 25 mg SD BID PRN (Reason: nausea and vomiting) Qty: 12 0RF ondansetron 4 mg tablet,disintegrating 4 mg PO Q8H PRN (Reason: nausea and vomiting) Qty: 14 0RF benzonatate 100 mg capsule 100 mg PO BID Qty: 20 0RF acetaminophen 500 mg capsule 500 mg PO Q6H PRN (Reason: pain) Qty: 30 0RF azithromycin 500 mg tablet See Rx Instructions .ROUTE .COMPLEX Qty: 6 0RF Rx Instructions: take 500 mg today (day 1), then 250 mg for 4 days (days 2-5) prednisone 50 mg tablet 50 mg PO QDAY Qty: 7 0RF albuterol sulfate [Ventolin HFA] 90 mcg/actuation HFA aerosol inhaler 2 puff inhalation Q6H PRN (Reason: shortness of breath or wheezing) Qty: 8.5 0RF benzonatate 100 mg capsule 100 mg PO TID Qty: 14 0RF Referrals: Berenice Giang PA-C [Primary Care Provider] - In 1 week Problem List Clinical Impression: Gastroenteritis Patient/Caregiver Discharge Instructions Education Materials: ED Diarrhea, Viral (Adult) Additional Instructions: Please follow-up with PCP within 24-48 hours and return immediately if symptoms worsen. Ibuprofen/Tylenol can be used simultaneously for greater fever/pain control. Keep hydrated. Advance diet as tolerated. Print Language: [place] Korean Stand Alone Forms: Patient Portal Info Letter PA/WAITER/WAITRESS HEAD Supervising Physician BEN/IVORY Supervising Physician: Dr. Su
== END 2024-11-14 05:23 | disposition home or self-care (01) ==
PROVIDERS: Physician Assistant; Emergency Provider Emergency Medicine; PCP Physician Assistant Medical
DX: K52.9 Noninfective gastroenteritis and colitis, unspecified (principal); J45.909 Unspecified asthma, uncomplicated
CPT/HCPCS: 36415; 80053; 80307; 81001; 81025; 83605; 83690; 84145; 85025; 99283; Q0162; A9270

== ENCOUNTER 2025-04-07 06:18 | Emergency (ER) | payer BC, SELFPAY ==
[2025-04-07 06:19] VITALS: BMI 36.4
[2025-04-07 06:24] VITALS: BP 122/82; PULSE 124; RESP 18; TEMP 36.7; O2SAT 96; BMI 36.9
--- NOTE | 2025-04-07 06:29 | XR_ITS ---
Examination: Abdomen sonogram, Limited Date and time of exam: April 07, 2025, 0721 hours INDICATIONS: Abdominal pain today Technique: Real-time kerr scale transabdominal sonographic images of the upper abdomen obtained. Findings: Normal gallbladder. Normal common bile duct 0.3 cm Pancreatic head 2.3 cm Liver 16.1 cm fatty infiltration no focal liver lesions Normal hepatopetal portal venous flow Patent IVC IMPRESSION: Normal gallbladder Normal common bile duct Mild hepatomegaly fatty infiltration throughout the liver
--- NOTE | 2025-04-07 06:30 | PD.EDABDPN ---
ED Abdominal Pain RME/HPI General Chief Complaint: Abdominal Pain Stated complaint: ABD PAIN WITH N/V/D Time seen by provider: 04/07/25 06:26 Arrival date/time: 04/07/25 06:18 24-year-old female with no known medical history presents to the emergency room with a chief complaint of 7 out of 10 epigastric pain, nausea, diarrhea x 2 days Source: patient Mode of arrival: ambulatory Limitations: no limitations Related Data Home Medications ?Medication ?Instructions ?Recorded ?Confirmed albuterol sulfate 90 mcg/actuation 2 puff inhalation Q6H PRN 08/20/19 aerosol inhaler prazosin 1 mg capsule 1 mg PO QHS 08/20/19 sertraline PO 08/20/19 topiramate 100 mg tablet (Topamax) 100 mg PO BID 08/20/19 Previous Rx's ?Medication ?Instructions ?Recorded acetaminophen 650 mg 650 mg PO Q8H PRN fever or pain 08/20/19 tablet,extended release #30 tabs benzonatate 100 mg capsule See Rx Instructions .Route 08/20/19 (Makenzie Calvin) .COMPLEX cough #30 caps cetirizine 5 mg-pseudoephedrine ER 1 tab PO Q12H #20 tabs 08/20/19 120 mg tablet,extended release,12hr (Zyrtec-D) ibuprofen 600 mg tablet 600 mg PO Q8H PRN fever or pain 08/20/19 #30 tabs ipratropium bromide 21 mcg (0.03 See Rx Instructions .Route 08/20/19 %) nasal spray .COMPLEX #30 mL prochlorperazine 25 mg rectal 25 mg [place] BID PRN nausea and 12/06/21 suppository (Compro) vomiting #12 ea azithromycin 500 mg tablet See Rx Instructions PO .COMPLEX #6 08/13/23 tabs ondansetron 4 mg disintegrating 4 mg PO Q8H PRN nausea and 12/06/23 tablet vomiting #14 tabs prednisone 50 mg tablet 50 mg PO QDAY #7 tabs 04/18/24 acetaminophen 500 mg capsule 500 mg PO Q6H PRN pain #30 caps 06/04/24 benzonatate 100 mg capsule 100 mg PO BID #20 caps 06/04/24 albuterol sulfate 90 mcg/actuation 2 puff inhalation Q6H PRN 09/18/24 aerosol inhaler (Ventolin HFA) shortness of breath or wheezing #8.5 grams benzonatate 100 mg capsule 100 mg PO TID #14 caps 09/18/24 ondansetron 4 mg disintegrating 4 mg PO Q8H PRN nausea and 11/14/24 tablet vomiting #14 tabs loperamide 2 mg capsule 2 mg PO Q6H PRN loose stool #14 04/07/25 (Anti-Diarrheal (loperamide)) caps ondansetron 4 mg disintegrating 4 mg PO Q8H PRN nausea and 04/07/25 tablet vomiting #14 tabs Allergies Allergy/AdvReac Type Severity Reaction Status Date / Time tramadol Allergy Verified 04/07/25 06:19 TYLENOL WITH CODIENE Allergy Gastrointestinal Uncoded 04/07/25 06:19 Upset Review of Systems Review of Systems Systems Reviewed: All systems reviewed, normal except as documented Constitutional Constitutional: Reports system reviewed and no additional complaints, except as documented, Denies fatigue, Denies fever(s), Denies headache(s) and Denies weakness Eyes Eyes: Reports system reviewed and no additional complaints, except as documented, Denies blurry vision and Denies change in vision ENT Ears, Nose, Mouth, and Throat: Reports system reviewed and no additional complaints, except as documented, Denies otalgia, Denies headache(s), Denies nasal congestion, Denies throat swelling and Denies vertigo Cardiovascular Cardiovascular: Reports system reviewed and no additional complaints, except as documented, Denies chest pain, Denies dyspnea and Denies dyspnea on exertion Respiratory Respiratory: Reports system reviewed and no additional complaints, except as documented, Denies chest congestion, Denies cough, Denies dyspnea, Denies dyspnea on exertion and Denies wheezing Gastrointestinal Gastrointestinal: Reports system reviewed and no additional complaints, except as documented, Reports abdominal pain, Reports cramping, Reports nausea and Denies vomiting Genitourinary Genitourinary: Reports system reviewed and no additional complaints, except as documented Musculoskeletal Musculoskeletal: Reports system reviewed and no additional complaints, except as documented and Denies back pain Integumentary/Breasts Skin/Breast: Reports system reviewed and no additional complaints, except as documented and Denies wounds Neurologic Neurologic: Reports system reviewed and no additional complaints, except as documented, Denies confusion, Denies headache(s), Denies lack of coordination, Denies vertigo and Denies weakness Psychiatric Psychiatric: Reports system reviewed and no additional complaints, except as documented, Denies anxiety, Denies confusion, Denies depression, Denies paranoia, Denies suicidal ideation and Denies tactile hallucinations Endocrine Endocrine: Reports system reviewed and no additional complaints, except as documented and Denies fatigue Hematologic/Lymphatic Hematologic/Lymphatic: Reports system reviewed and no additional complaints, except as documented and Denies lymphadenopathy Allergic/Immunologic Allergic/Immunologic: Reports system reviewed and no additional complaints, except as documented, Denies throat swelling, Denies urticaria and Denies wheezing Past Medical History Past Medical History NEUROLOGIC: Negative Neurological Disorders CARDIAC: Negative Cardiac Disorders or Congestive Heart Failure RESPIRATORY: Positive Asthma; Negative Chronic Obstructive Pulmonary Disease (COPD) GENITOURINARY: Positive Genitourinary Disorders and Kidney Stones; Negative Renal Disease ENDOCRINE: Negative Diabetes Mellitus Type 1 or Diabetes Mellitus Type 2 Social History SMOKING STATUS: Former smoker SUBSTANCE USE: does not use ED Exam General Limitations: Present no limitations General appearance: Present alert and in no apparent distress Head Head exam: Present atraumatic Eye Eye exam: Present normal appearance, PERRL and EOMI ENT ENT exam: Present normal exam, normal oropharynx and mucous membranes moist Neck Neck exam: Present normal inspection, full ROM and trachea midline Chest Chest inspection: Present normal inspection and symmetric chest wall rise Respiratory Respiratory exam: Present normal lung sounds bilaterally Cardiovascular Cardiovascular exam: Present regular rate, normal rhythm and normal heart sounds Abdominal Exam Abdominal exam: Present soft, tenderness and normal bowel sounds; Absent Mota's sign or tenderness at McBurney's Point Abdominal tenderness: Present RUQ, epigastrium and mild Extremities Exam Extremities exam: Present normal inspection and full ROM Back Exam Back exam: Present normal inspection and full ROM Neurological Exam Neurological exam: Present alert, oriented X3 and CN II-XII intact Psychiatric Psychiatric exam: Present normal affect and normal mood Skin Skin exam: Present warm, dry, intact and normal color Course Quality Measures none Orders Category Date Time Status US gall bladder Stat Exams 04/07/25 06:29 Completed CBC Stat Lab 04/07/25 08:12 Completed CMP [Comprehensive Metabolic Panel] Stat Lab 04/07/25 08:12 Completed HCG Qualitative,Urine Stat Lab 04/07/25 08:48 Completed Lipase Stat Lab 04/07/25 08:12 Completed UA [Urinalysis] Stat Lab 04/07/25 08:48 Completed Urine Culture Stat Lab 04/07/25 08:48 Received Acetaminophen Tab [Tylenol ES Tab] Med 04/07/25 06:29 Discontinued 1,000 mg PO X1 ONE mg Hyd/Al Hyd/Mandy Susp [Maalox Susp] Med 04/07/25 06:29 Discontinued 30 ml PO X1 ONE Vital Signs Vital signs: Vital Signs Temperature 98.0 F 04/07/25 06:24 Pulse Rate 124 H 04/07/25 06:24 Respiratory Rate 18 04/07/25 06:24 Blood Pressure 122/82 04/07/25 06:24 Pulse Oximetry (%) 96 04/07/25 06:24 Oxygen Delivery Method Room Air 04/07/25 06:24 Abdominal Pain MDM MDM Narrative MDM Narrative:: 24-year-old female with no known medical history presents to the emergency room with a chief complaint of 7 out of 10 epigastric pain, nausea, diarrhea x 2 days Patient is hemodynamically stable and in no apparent distress. Patient is a tachycardic at 124 bpm Physical examination shows some 7 out of 10 epigastric abdominal pain with palpation that radiates to the right upper quadrant. There is a negative Mota sign Ultrasound of the gallbladder was negative for any acute findings and just found a fatty liver CBC CMP were negative for any leukocytosis. Urinalysis was within normal limits Patient was discharged and educated to follow-up with primary care provider in the next 24 to 48 hours and return to the emergency room for any evidence of worsening signs or symptoms Patient data External records reviewed:: [facility] previous records Clinical information provided by:: patient Social determinants that could affect healthcare access:: none Patient has the following chronic illnesses:: No chronic illness How is presenting disease/condition affected by chronic disease/condition?: no chronic disease Evaluation data The following diagnostics were reviewed and interpreted by me:: lab results and radiology exam(s) Lab and/or radiology exams considered but not ordered:: Labs and radiology exams considered and ordered Interpretation Summary: Ultrasound gallbladder-Findings: Normal gallbladder. Normal common bile duct 0.3 cm Pancreatic head 2.3 cm Liver 16.1 cm fatty infiltration no focal liver lesions Normal hepatopetal portal venous flow Patent IVC IMPRESSION: Normal gallbladder Normal common bile duct Mild hepatomegaly fatty infiltration throughout the liver Medications / Prescriptions Medications or Prescriptions considered but not ordered:: Medication given Medication administrations:: Medication Administration History Discontinued Medications Acetaminophen (Acetaminophen 500 Mg Tablet) 1,000 mg PO X1 ONE Stop: 04/07/25 06:30 Last Admin: 04/07/25 06:53 Dose: 1,000 mg Documented By: HOMER Al Hydrox/Mg Hydrox/Simethicone (Mg Hyd/Al Hyd/Mandy (Maalox Reg) Susp 30 Ml Udc) 30 ml PO X1 ONE Stop: 04/07/25 06:30 Last Admin: 04/07/25 06:54 Dose: 30 ml Documented By: HOMER Medication given Consultations Consultation(s) initiated? (list below): No Diagnosis Differential diagnosis abdominal pain: abdominal pain, acute appendicitis, constipation, gastroenteritis and small bowel obstruction Most likely diagnosis given after review of the tests above:: Gastroenteritis Admission Indicated Admission indicated?: not indicated Admission Request Was there a request for admission?: No Disposition Plan Disposition Plan: Discharge Discharge Attestation Discharge Attestation: The patient and all family members were given an opportunity to ask questions and understood the discharge instructions. Discharge instructions specifically effects, indications for sooner follow up or return to the emergency department, and the expected course of current diagnosis. Patient condition: Stable Discharge Plan Plan Patient Disposition: HOME (Self Care) Discharge Disposition comment: Stable Prescriptions/Referrals Prescriptions/Med Rec: New loperamide [Anti-Diarrheal (loperamide)] 2 mg capsule 2 mg PO Q6H PRN (Reason: loose stool) Qty: 14 0RF ondansetron 4 mg tablet,disintegrating 4 mg PO Q8H PRN (Reason: nausea and vomiting) Qty: 14 0RF No Action sertraline PO albuterol sulfate 90 mcg/actuation HFA aerosol inhaler 2 puff IH Q6H PRN topiramate [Topamax] 100 mg tablet 100 mg PO BID prazosin 1 mg capsule 1 mg PO QHS acetaminophen 650 mg tablet extended release 650 mg PO Q8H PRN (Reason: fever or pain) Qty: 30 0RF Rx Instructions: swallow whole; do not crush, chew, break, dissolve, cut, or open ibuprofen 600 mg tablet 600 mg PO Q8H PRN (Reason: fever or pain) Qty: 30 0RF Rx Instructions: prn pain / fever ipratropium bromide 0.03 % spray,non-aerosol See Rx Instructions .Route .COMPLEX Qty: 30 0RF Rx Instructions: 2 sprays to each nostril q6-8 hours prn congestion; wait 30 seconds between sprays benzonatate [Tessalon Perles] 100 mg capsule See Rx Instructions .Route .COMPLEX Qty: 30 0RF Rx Instructions: 1-2 cap(s) PO Q8 hours prn cough cetirizine-pseudoephedrine [Zyrtec-D] 5-120 mg tablet extended release 12 hr 1 tab PO Q12H Qty: 20 0RF prochlorperazine [Compro] 25 mg suppository 25 mg [place] BID PRN (Reason: nausea and vomiting) Qty: 12 0RF ondansetron 4 mg tablet,disintegrating 4 mg PO Q8H PRN (Reason: nausea and vomiting) Qty: 14 0RF benzonatate 100 mg capsule 100 mg PO BID Qty: 20 0RF acetaminophen 500 mg capsule 500 mg PO Q6H PRN (Reason: pain) Qty: 30 0RF azithromycin 500 mg tablet See Rx Instructions .ROUTE .COMPLEX Qty: 6 0RF Rx Instructions: take 500 mg today (day 1), then 250 mg for 4 days (days 2-5) prednisone 50 mg tablet 50 mg PO QDAY Qty: 7 0RF albuterol sulfate [Ventolin HFA] 90 mcg/actuation HFA aerosol inhaler 2 puff inhalation Q6H PRN (Reason: shortness of breath or wheezing) Qty: 8.5 0RF benzonatate 100 mg capsule 100 mg PO TID Qty: 14 0RF ondansetron 4 mg tablet,disintegrating 4 mg PO Q8H PRN (Reason: nausea and vomiting) Qty: 14 0RF Referrals: No Primary/Family,Physician [Primary Care Provider] - In 1 week Problem List Clinical Impression: Gastroenteritis Patient/Caregiver Discharge Instructions Education Materials: ED Gastroenteritis, Noninfectious Additional Instructions: Please follow-up with your primary care provider in the next 24 to 48 hours Your blood work and urinalysis were within normal limits. Your ultrasound of your gallbladder was within normal limits Medication was sent to your pharmacy please pick it up and take it as indicated For any evidence of worsening signs or symptoms return to emergency room immediately Print Language: German Stand Alone Forms: [employer] Award Info., Work/School Release, Patient Portal Info Letter
[2025-04-07] MEDS: ACETAMINOPHEN 500 MG TABLET 1000 MG PO (06:53)
[2025-04-07] MEDS: MG HYD/AL HYD/SIME (Maalox Reg) SUSP 30 ML UDC PO (06:54)
[2025-04-07 08:26] LABS: Basophils # (Auto) 0.0 Thou/mm3 (0.0-0.2); Basophils % (Auto) 0 % (0-2.5); Eosinophils # (Auto) 0.0 Thou/mm3 (0.0-0.5); Eosinophils % (Auto) 0 % (0-10); Hematocrit 43.3 % (36.0-46.0); Hemoglobin 14.0 g/dL (12.0-16.0); Immature Granulocytes Auto 0.03 Thou/mm3 (0.00-0.00); Lymphocytes # (Auto) 1.0 Thou/mm3 (1.0-4.8); Lymphocytes % (Auto) 8 % (10-50); Mean Corpuscular HGB Conc 32.3 g/dl (31.0-37.0); Mean Corpuscular Hemoglobin 27.9 pg (25.0-35.0); Mean Corpuscular Volume 86 fL (80-100); Monocytes # (Auto) 0.8 Thou/mm3 (0.0-0.8); Monocytes % (Auto) 6 % (0-12); Neutrophils # (Auto) 10.7 Thou/mm3 (1.8-7.7); Neutrophils % (Auto) 85 % (37-80); Nucleated Red Blood Cell # 0.00 Thou/mm3 (0.00-0.00); Nucleated Red Blood Cell % 0 /100 WBC (0); Platelet Count 410 Thou/mm3 (140-440); RDW Standard Deviation 39.5 fL (36.4-46.3); Red Blood Count 5.02 Miln/mm3 (4.00-5.20); White Blood Count 12.6 Thou/mm3 (3.6-11.0)
[2025-04-07 08:43] LABS: Alanine Aminotransferase 19 U/L (10-49); Albumin, Serum 5.1 gm/dL (3.5-5.0); Albumin/Globulin Ratio 2.1 (1.2-2.2); Alkaline Phosphatase 64 U/L (46-116); Anion Gap 9 (7-16); Aspartate Amino Transferase 17 U/L (0-34); BUN/Creatinine Ratio 11 Ratio (12-20); Bilirubin,Total 0.8 mg/dL (0.3-1.2); Blood Urea Nitrogen 10 mg/dL (9-23); Calcium 9.3 mg/dL (8.3-10.6); Calcium (Corrected) 9.3 mg/dL (8.5-10.1); Carbon Dioxide 25.8 mMol/L (20.0-31.0); Chloride 106 mMol/L (98-107); Creatinine (Component) 0.9 mg/dL (0.6-1.3); Estimated Creatinine Clearance 111.4 mL/min (>60); Globulin 2.4 gm/dL (2.3-3.5); Glucose 104 mg/dL (74-106); Lipase 32 U/L (12-53); Osmolality,Calculated 280 (275-295); Potassium 3.9 mMol/L (3.4-5.1); Sodium 141 mMol/L (136-145); Total Protein 7.5 gm/dL (5.7-8.2); eGFR > 60 See Note
[2025-04-07 09:15] LABS: Collection Type, Urine Clean Catch
[2025-04-07 09:33] LABS: Bilirubin,Urine 1+ (Negative); Blood,Urine Negative (Negative); Color,Urine Yellow (Lt Yel-Yel); Glucose, Urine Negative (Negative); Ketones,Urine 2+ (Negative); Leukocyte Esterase,Urine Positive (Negative); Nitrite,Urine Negative (Negative); PH,Urine 6.0 (5.0-7.0); Protein,Urine 1+ (Neg - Trace); RBC,Urine 9 /hpf (0-3); Specific Gravity,Urine 1.034 (1.001-1.035); Squamous Epithelial Cell,Urine 10 /hpf (0-5); Urobilinogen,Urine 2.0 mg/dL (0.0-1.0); WBC,Urine 6 /hpf (0-5)
[2025-04-07 09:36] LABS: HCG Qualitative,Urine Negative
[2025-04-07 09:38] LABS: Clarity,Urine Hazy (Clear/Hazy)
[2025-04-07 10:01] VITALS: BP 104/76; PULSE 98; RESP 18; TEMP 36.8; O2SAT 99
== END 2025-04-07 10:10 | disposition home or self-care (01) ==
PROVIDERS: Emergency Provider Nurse Practitioner Family
DX: K52.9 Noninfective gastroenteritis and colitis, unspecified (principal)
CPT/HCPCS: 36415; 76705; 80053; 81001; 81025; 83690; 85025; 87086; 99283; A9270

== ENCOUNTER 2025-05-10 04:56 | Emergency (ER) | payer BC, SELFPAY ==
[2025-05-10 04:58] VITALS: BMI 35.7
[2025-05-10 05:33] VITALS: BP 123/80; PULSE 106; RESP 16; TEMP 36.7; O2SAT 96
--- NOTE | 2025-05-10 05:52 | PD.EDRME ---
Rapid Medical Screening Exam [facility] Arrival date/time: 05/10/25 04:56 24F with history of marijuana use presents to ED with 2 days of N/V, ab pain/cramping, and non-bloody diarrhea. Patient denies URI symptoms. Chief Complaint: General Adult/Misc Complain Vital signs: Vital Signs Temperature 98.0 F 05/10/25 05:33 Pulse Rate 106 H 05/10/25 05:33 Respiratory Rate 16 05/10/25 05:33 Blood Pressure 123/80 05/10/25 05:33 Pulse Oximetry (%) 96 05/10/25 05:33 Oxygen Delivery Method Room Air 05/10/25 05:33 Exam: No ab tenderness. Clinical Impression: gastroenteritis vs food poisoning vs hypermesis vs viral syndrome
[2025-05-10] MEDS: ONDANSETRON ODT 4 MG TABRAP PO (06:02)
[2025-05-10] MEDS: DICYCLOMINE 10 MG CAPSULE PO (06:02)
[2025-05-10 06:11] LABS: Collection Type, Urine Clean Catch
[2025-05-10 06:12] LABS: Basophils # (Auto) 0.0 Thou/mm3 (0.0-0.2); Basophils % (Auto) 0 % (0-2.5); Eosinophils # (Auto) 0.1 Thou/mm3 (0.0-0.5); Eosinophils % (Auto) 2 % (0-10); Hematocrit 42.3 % (36.0-46.0); Hemoglobin 13.7 g/dL (12.0-16.0); Immature Granulocytes Auto 0.02 Thou/mm3 (0.00-0.00); Lymphocytes # (Auto) 1.2 Thou/mm3 (1.0-4.8); Lymphocytes % (Auto) 15 % (10-50); Mean Corpuscular HGB Conc 32.4 g/dl (31.0-37.0); Mean Corpuscular Hemoglobin 28.2 pg (25.0-35.0); Mean Corpuscular Volume 87 fL (80-100); Monocytes # (Auto) 0.7 Thou/mm3 (0.0-0.8); Monocytes % (Auto) 9 % (0-12); Neutrophils # (Auto) 6.0 Thou/mm3 (1.8-7.7); Neutrophils % (Auto) 75 % (37-80); Nucleated Red Blood Cell # 0.00 Thou/mm3 (0.00-0.00); Nucleated Red Blood Cell % 0 /100 WBC (0); Platelet Count 366 Thou/mm3 (140-440); RDW Standard Deviation 39.3 fL (36.4-46.3); Red Blood Count 4.86 Miln/mm3 (4.00-5.20); White Blood Count 8.0 Thou/mm3 (3.6-11.0)
[2025-05-10 06:22] LABS: Bilirubin,Urine Negative (Negative); Blood,Urine Negative (Negative); Clarity,Urine Turbid (Clear/Hazy); Color,Urine Yellow (Lt Yel-Yel); Culture Indicated,Urine Not Indicated; Glucose, Urine Negative (Negative); Ketones,Urine Trace (Negative); Leukocyte Esterase,Urine Negative (Negative); Nitrite,Urine Negative (Negative); PH,Urine 5.5 (5.0-7.0); Protein,Urine 1+ (Neg - Trace); RBC,Urine 4 /hpf (0-3); Specific Gravity,Urine 1.035 (1.001-1.035); Squamous Epithelial Cell,Urine 24 /hpf (0-5); Urobilinogen,Urine Negative mg/dL (0.0-1.0); WBC,Urine 3 /hpf (0-5)
[2025-05-10 06:23] LABS: HCG Qualitative,Urine Negative
[2025-05-10 06:26] LABS: Amphetamine/Methamp Scrn,U Negative (Negative); Barbiturate Screen,Urine Negative (Negative); Benzodiazepines Screen,Urine Negative (Negative); Benzoylecgonine Screen, Ur Negative (Negative); Fentanyl Screen,Urine Negative (Negative); Opiate Screen,Urine Negative (Negative); THC Screen,Urine Negative (Negative)
[2025-05-10 06:34] LABS: Alanine Aminotransferase 20 U/L (10-49); Albumin, Serum 4.9 gm/dL (3.5-5.0); Albumin/Globulin Ratio 1.8 (1.2-2.2); Alkaline Phosphatase 62 U/L (46-116); Anion Gap 7 (7-16); Aspartate Amino Transferase 17 U/L (0-34); BUN/Creatinine Ratio 9 Ratio (12-20); Bilirubin,Total 0.6 mg/dL (0.3-1.2); Blood Urea Nitrogen 7 mg/dL (9-23); Calcium 9.5 mg/dL (8.3-10.6); Calcium (Corrected) 9.5 mg/dL (8.5-10.1); Carbon Dioxide 27.3 mMol/L (20.0-31.0); Chloride 106 mMol/L (98-107); Creatinine (Component) 0.8 mg/dL (0.6-1.3); Estimated Creatinine Clearance 123.2 mL/min (>60); Globulin 2.8 gm/dL (2.3-3.5); Glucose 93 mg/dL (74-106); Lipase 39 U/L (12-53); Osmolality,Calculated 277 (275-295); Potassium 4.0 mMol/L (3.4-5.1); Sodium 140 mMol/L (136-145); Total Protein 7.7 gm/dL (5.7-8.2); eGFR > 60 See Note
[2025-05-10 07:24] VITALS: BP 105/71; PULSE 71; RESP 16; TEMP 37.1; O2SAT 98
--- NOTE | 2025-05-10 07:34 | PD.EDADULT ---
ED General RME/HPI General Chief complaint: General Adult/Misc Complain Stated complaint: ABD PAIN, BODYACHES,VOMITING Time Seen by Provider: 05/10/25 06:03 Arrival date/time: 05/10/25 04:56 Limitations: no limitations RME / HPI Onset (ago): day(s) Location: back and left Radiation: abdomen Severity: moderate Quality: aching Consistency: intermittent Relieving factors: none Exacerbating factors: none Treatments prior to arrival: NSAID RME / HPI narrative: 05/10/25 04:56 24F with history of marijuana use presents to ED with 2 days of N/V, ab pain/cramping, and non-bloody diarrhea. Patient denies URI symptoms. 24-year-old female with 2 days of nausea vomiting abdominal pain and cramping. Intermittent nonbloody diarrhea. No upper respiratory symptoms. Does have history of kidney stones. Last episode was 2 years ago. No burning urination. Has not required lithotripsy but was close. States last kidney stone was stuck there for over a week. States that was the last time she had imaging for kidney stone. Reports it feels similar to that time. Exam: No ab tenderness. Impression: gastroenteritis vs food poisoning vs hypermesis vs viral syndrome Related Data Home Medications ?Medication ?Instructions ?Recorded ?Confirmed albuterol sulfate 90 mcg/actuation 2 puff inhalation Q6H PRN 08/20/19 aerosol inhaler prazosin 1 mg capsule 1 mg PO QHS 08/20/19 sertraline PO 08/20/19 topiramate 100 mg tablet (Topamax) 100 mg PO BID 08/20/19 Previous Rx's ?Medication ?Instructions ?Recorded acetaminophen 650 mg 650 mg PO Q8H PRN fever or pain 08/20/19 tablet,extended release #30 tabs benzonatate 100 mg capsule See Rx Instructions .Route 08/20/19 (Makenzie Calvin) .COMPLEX cough #30 caps cetirizine 5 mg-pseudoephedrine ER 1 tab PO Q12H #20 tabs 08/20/19 120 mg tablet,extended release,12hr (Zyrtec-D) ibuprofen 600 mg tablet 600 mg PO Q8H PRN fever or pain 08/20/19 #30 tabs ipratropium bromide 21 mcg (0.03 See Rx Instructions .Route 08/20/19 %) nasal spray .COMPLEX #30 mL prochlorperazine 25 mg rectal 25 mg MO BID PRN nausea and 12/06/21 suppository (Compro) vomiting #12 ea azithromycin 500 mg tablet See Rx Instructions PO .COMPLEX #6 08/13/23 tabs ondansetron 4 mg disintegrating 4 mg PO Q8H PRN nausea and 12/06/23 tablet vomiting #14 tabs prednisone 50 mg tablet 50 mg PO QDAY #7 tabs 04/18/24 acetaminophen 500 mg capsule 500 mg PO Q6H PRN pain #30 caps 06/04/24 benzonatate 100 mg capsule 100 mg PO BID #20 caps 06/04/24 albuterol sulfate 90 mcg/actuation 2 puff inhalation Q6H PRN 09/18/24 aerosol inhaler (Ventolin HFA) shortness of breath or wheezing #8.5 grams benzonatate 100 mg capsule 100 mg PO TID #14 caps 09/18/24 ondansetron 4 mg disintegrating 4 mg PO Q8H PRN nausea and 11/14/24 tablet vomiting #14 tabs loperamide 2 mg capsule 2 mg PO Q6H PRN loose stool #14 04/07/25 (Anti-Diarrheal (loperamide)) caps ondansetron 4 mg disintegrating 4 mg PO Q8H PRN nausea and 04/07/25 tablet vomiting #14 tabs hydrocodone 5 mg-acetaminophen 325 1 tab PO BID PRN pain 7 days #14 05/10/25 mg tablet tabs ondansetron 4 mg disintegrating 4 mg PO Q8H PRN nausea and 05/10/25 tablet vomiting #10 tabs tamsulosin 0.4 mg capsule (Flomax) 0.4 mg PO QDAY #14 caps 05/10/25 Allergies Allergy/AdvReac Type Severity Reaction Status Date / Time tramadol Allergy Verified 05/10/25 04:57 TYLENOL WITH CODIENE Allergy Gastrointestinal Uncoded 05/10/25 04:57 Upset ED Exam General Limitations: Present no limitations General appearance: Present alert and in no apparent distress Head Head exam: Present atraumatic Eye Eye exam: Present normal appearance, PERRL and EOMI ENT ENT exam: Present normal exam, normal oropharynx and mucous membranes moist Respiratory Respiratory exam: Present normal lung sounds bilaterally Cardiovascular Cardiovascular exam: Present regular rate, normal rhythm and normal heart sounds Abdominal Exam Abdominal exam: Present soft, normal bowel sounds and other (left cvat ) Extremities Exam Extremities exam: Present normal inspection and full ROM Back Exam Back exam: Present normal inspection and full ROM Psychiatric Psychiatric exam: Present normal affect and normal mood Skin Skin exam: Present warm, dry, intact and normal color Course Quality Measures none Orders Category Date Time Status CBC Stat Lab 05/10/25 06:02 Completed CMP [Comprehensive Metabolic Panel] Stat Lab 05/10/25 06:02 Completed Drug Screen,Urine Stat Lab 05/10/25 06:02 Completed HCG Qualitative,Urine Stat Lab 05/10/25 06:02 Completed Lipase Stat Lab 05/10/25 06:02 Completed Urinalysis, C/S if Indicated Stat Lab 05/10/25 06:02 Completed Dicyclomine [Bentyl] Med 05/10/25 05:51 Discontinued 10 mg PO X1 ONE HYDROcodone*/APAP 5/325 [Sullivan 5/325] Med 05/10/25 07:35 Discontinued 1 tab PO X1 ONE Ketorolac Inj [Toradol Inj] Med 05/10/25 07:35 Discontinued 30 mg IM X1 ONE Ondansetron Odt [Zofran Odt] Med 05/10/25 05:51 Discontinued 4 mg PO X1 ONE Vital Signs Vital signs: Vital Signs Temperature 98.0 F 05/10/25 05:33 Pulse Rate 106 H 05/10/25 05:33 Respiratory Rate 16 05/10/25 05:33 Blood Pressure 123/80 05/10/25 05:33 Pulse Oximetry (%) 96 05/10/25 05:33 Oxygen Delivery Method Room Air 05/10/25 05:33 Discharge Plan Plan Patient Disposition: HOME (Self Care) Discharge Disposition comment: f/u with pcp in 2-3days Prescriptions/Referrals Prescriptions/Med Rec: New tamsulosin [Flomax] 0.4 mg capsule 0.4 mg PO QDAY Qty: 14 0RF hydrocodone-acetaminophen 5-325 mg tablet 1 tab PO BID MDD 2 PRN (Reason: pain) 7 Days Qty: 14 0RF ondansetron 4 mg tablet,disintegrating 4 mg PO Q8H PRN (Reason: nausea and vomiting) Qty: 10 0RF No Action sertraline PO albuterol sulfate 90 mcg/actuation HFA aerosol inhaler 2 puff IH Q6H PRN topiramate [Topamax] 100 mg tablet 100 mg PO BID prazosin 1 mg capsule 1 mg PO QHS acetaminophen 650 mg tablet extended release 650 mg PO Q8H PRN (Reason: fever or pain) Qty: 30 0RF Rx Instructions: swallow whole; do not crush, chew, break, dissolve, cut, or open ibuprofen 600 mg tablet 600 mg PO Q8H PRN (Reason: fever or pain) Qty: 30 0RF Rx Instructions: prn pain / fever ipratropium bromide 0.03 % spray,non-aerosol See Rx Instructions .Route .COMPLEX Qty: 30 0RF Rx Instructions: 2 sprays to each nostril q6-8 hours prn congestion; wait 30 seconds between sprays benzonatate [Tessalon Perles] 100 mg capsule See Rx Instructions .Route .COMPLEX Qty: 30 0RF Rx Instructions: 1-2 cap(s) PO Q8 hours prn cough cetirizine-pseudoephedrine [Zyrtec-D] 5-120 mg tablet extended release 12 hr 1 tab PO Q12H Qty: 20 0RF prochlorperazine [Compro] 25 mg suppository 25 mg MO BID PRN (Reason: nausea and vomiting) Qty: 12 0RF ondansetron 4 mg tablet,disintegrating 4 mg PO Q8H PRN (Reason: nausea and vomiting) Qty: 14 0RF benzonatate 100 mg capsule 100 mg PO BID Qty: 20 0RF acetaminophen 500 mg capsule 500 mg PO Q6H PRN (Reason: pain) Qty: 30 0RF azithromycin 500 mg tablet See Rx Instructions .ROUTE .COMPLEX Qty: 6 0RF Rx Instructions: take 500 mg today (day 1), then 250 mg for 4 days (days 2-5) prednisone 50 mg tablet 50 mg PO QDAY Qty: 7 0RF albuterol sulfate [Ventolin HFA] 90 mcg/actuation HFA aerosol inhaler 2 puff inhalation Q6H PRN (Reason: shortness of breath or wheezing) Qty: 8.5 0RF benzonatate 100 mg capsule 100 mg PO TID Qty: 14 0RF ondansetron 4 mg tablet,disintegrating 4 mg PO Q8H PRN (Reason: nausea and vomiting) Qty: 14 0RF loperamide [Anti-Diarrheal (loperamide)] 2 mg capsule 2 mg PO Q6H PRN (Reason: loose stool) Qty: 14 0RF ondansetron 4 mg tablet,disintegrating 4 mg PO Q8H PRN (Reason: nausea and vomiting) Qty: 14 0RF Referrals: Berenice Giang PA-C [Primary Care Provider] - In 1 week Problem List Clinical Impression: Renal colic on left side, Calculus, kidney, Hematuria Patient/Caregiver Discharge Instructions Education Materials: ED Hematuria, ED Kidney Stone w/ Colic Print Language: Upper Sorbian Stand Alone Forms: [employer] Award Info., Patient Portal Info Letter BEN/IVORY Supervising Physician PA/IVORY Supervising Physician: Dr. Leavitt MDM Narrative MDM hospital course (for use when minimal MDM required): Workup started by initial provider essentially negative other than signs of hematuria which is consistent with patient's history. Offered CT scan to see size of possible stone opted out due to risk of radiation. Opted for treatment understood to return to ER if symptoms worsen. And at that time should have imaging done. Clinical Information Provided by: patient Medical Records reviewed [facility] Meds/Rx considered, not ordered describe: Antibiotics were considered however unlikely to be infected given no bacteria Labs/Rad/Tests considered, not ordered Describe: Offered CT scan to see size of possible stone opted out due to risk of radiation. Chronic Illness/Social Conditions which may negatively complicate care or outcome(s)-explain: other (History of stones) Explain: High risk for recurrence Labs Lab(s) Interpretation(s): CBC, CMP within normal limits UA suggestive of stones does not suggest UTI at this time however culture was sent Imaging Imaging Interpretation(s): Declined imaging at this time Medication Administration(s) Medication Administration History Discontinued Medications Hydrocodone Bitart/Acetaminophen (Hydrocodone/Apap 5/325 Tablet) 1 tab PO X1 ONE Stop: 05/10/25 07:36 Last Admin: 05/10/25 07:44 Dose: 1 tab Documented By: DEIRDRE Dicyclomine HCl (Dicyclomine 10 Mg Capsule) 10 mg PO X1 ONE Stop: 05/10/25 05:52 Last Admin: 05/10/25 06:02 Dose: 10 mg Documented By: HUY Ketorolac Tromethamine (Ketorolac Inj 30 Mg/Ml Vial) 30 mg IM X1 ONE Stop: 05/10/25 07:36 Last Admin: 05/10/25 07:44 Dose: 30 mg Documented By: DEIRDRE Ondansetron HCl (Ondansetron Odt 4 Mg Tabrap) 4 mg PO X1 ONE; Protocol Stop: 05/10/25 05:52 Last Admin: 05/10/25 06:02 Dose: 4 mg Documented By: HUY See above Diagnosis Differential Diagnosis ED Complaint MDM: Gastroenteritis, kidney stone, pyelo-, UTI, viral diarrhea Diagnoses ruled out and/or further discussions: Left renal colic History of stones Hematuria
[2025-05-10] MEDS: KETOROLAC INJ 30 MG/ML VIAL IM (07:44)
[2025-05-10] MEDS: HYDROcodone/APAP 5/325 TABLET 1 TAB PO (07:44)
== END 2025-05-10 07:48 | disposition home or self-care (01) ==
PROVIDERS: Physician Assistant; Emergency Provider Emergency Medicine; PCP Physician Assistant Medical
DX: N20.0 Calculus of kidney (principal); R11.2 Nausea with vomiting, unspecified
CPT/HCPCS: 36415; 80053; 80307; 81001; 81025; 83690; 85025; 87086; 96372; 99283; J1885; Q0162; A9270